=== PATIENT | female | born 1965 | race Caucasian/White ===

== ENCOUNTER 2016-10-10 10:08 | Outpatient (RCR) | payer BC ==
--- OUTSIDE RECORDS SUMMARY | 2016-09-25 14:18 | XMS REPORT | Continuity of Care Document ---
Author Author [facility] Organization [facility] Address Unknown Phone Unavailable Care Team Providers Care Manager General Name Role Phone Leslie Alonso PCP [phone] Source Comments Some departments are not documenting in the electronic medical record. If you do not see the information that you expected, contact Release of Information in the Health Information Management department at [phone] for further assistance in locating additional records.[facility] Active Allergies and Adverse Reactions No Known Allergies Current Medications Prescription Sig. Disp. Refills Start End Date Status Date ondansetron (ZOFRAN) 8 mg Take 1 Tab by mouth every 40 Tab 4 05/02/20 Active tablet 8 hours as needed for 16 Nausea. Indications: CANCER CHEMOTHERAPY-INDUCED NAUSEA AND VOMITING prochlorperazine Take 1 Tab by mouth every 40 Tab 4 05/02/20 Active (COMPAZINE) 10 mg tablet 6 hours as needed. 16 Indications: CANCER CHEMOTHERAPY-INDUCED NAUSEA AND VOMITING, NAUSEA AND VOMITING dexamethasone (DECADRON) Beginning 24 hours after 40 Tab 3 05/05/20 Active 4 mg tablet each Cisplatin infusion, 16 take 2 tablets by mouth daily for 3 days. lidocaine-prilocaine Apply thin layer to skin 30 g 0 05/09/20 Active (EMLA) 2.5-2.5 % topical over port 30 minutes 16 cream prior to access lisinopril (PRINIVIL; Take 40 mg by mouth at Active ZESTRIL) 20 mg tablet bedtime daily. diphenhydrAMINE (BENADRYL Take 50 mg by mouth at Active ALLERGY) 25 mg tablet bedtime as needed. polyethylene glycol 3350 Take 17 g by mouth daily. Active (GLYCOLAX; MIRALAX) 17 gram/dose powder metoclopramide HCl Take 1 Tab by mouth every 60 Tab 3 12/02/20 Active (REGLAN) 10 mg tablet 8 hours as needed. 16 Indications: PREVENTION OF CHEMOTHERAPY-INDUCED NAUSEA AND VOMITING levoFLOXacin (LEVAQUIN) Take 1 Tab by mouth 10 Tab 0 09/19/20 Active 500 mg tablet daily. 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 In January/2016 she first started noticing various symptoms. The first of which was a rash on her stomach followed by persistent nausea and vomiting. She attributed her symptoms to being on a cruise in [place].She then developed dark urine and jaundice of the skin and sclera late March and then presented for evaluation. She was worked up at [facility] where ct sans showed biliary distension. She had an ERCP, sphincterotomy, stent placement and bile duct washing. Pathology consistent with adenocarcinoma. New diagnosis of cholangiocarcinoma - per path report adenocarcinoma on bronchial washings from ERCP 03/[address] scan c/a/p in March 2016 that shows no metastatic disease. 04/24/16 MRI maging reviewed and it showed a mass in the hilum with an infiltrative lesion in segment 5 of her liver. Patient's case of discussed in the multidisciplinary tumor board, consensus was she is not a surgical or transplant candidate at this time and the recommendation was to consider starting palliative chemotherapy with cisplatin and gemcitabine CURRENT THERAPY: IV Gemzar 1000mg/m2 +cisplatin 25mg/m2 d1and 8 Q21 day cycle started on 05/09/16 Palliative intent of treatment. 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 She was started on Gemcitabine+cisplatin on 05/09/16. She tolerated treatment well with no dose limiting toxicities. Her labs are stable per trends. Plan: -proceed with C1D8 of gemcitabine+cisplatin -return to clinic in 2 weeks for follow up with Dr. Fletcher and consideration of C2D1 -she was instructed to call clinic prior to her next appointment if she develops new symptoms or concerns. -I will contact GI regarding stent exchange Most Recent Encounters Date Type Specialty Providers Description 09/25/2016 Cancer Oncology Sue Fletcher MD Conference 09/19/2016 Nurse Only Oncology Sue Fletcher MD 09/19/2016 Office Visit Oncology Sue Fletcher MD Hilar cholangiocarcinoma (HCC) (Primary Dx) 09/19/2016 [facility] Radiology Sue Fletcher MD Arrived Encounter 09/19/2016 [facility] Radiology Sue Fletcher MD Arrived Encounter 09/17/2016 Screening Form 09/10/2016 [facility] Oncology Sue Fletcher MD Encounter 09/10/2016 [facility] Oncology Sue Fletcher MD Encounter 09/08/2016 Orders Only Oncology Sue Fletcher MD 09/08/2016 Orders Only Oncology Sue Fletcher MD 08/29/2016 [facility] Oncology Sue Fletcher MD Encounter 08/29/2016 [facility] Oncology Sue Fletcher MD Encounter 08/22/2016 [facility] Oncology Sue Fletcher MD Encounter 08/22/2016 Office Visit Oncology Sue Fletcher MD Hilar cholangiocarcinoma (HCC) (Primary Dx); Other fatigue 08/22/2016 Nurse Only Oncology Sue Fletcher MD Hilar cholangiocarcinoma (HCC) (Primary Dx) 08/08/2016 [facility] Oncology Sue Fletcher MD Encounter 08/08/2016 [facility] Oncology Sue Fletcher MD Encounter 08/01/2016 [facility] Oncology Sue Fletcher MD Encounter 08/01/2016 Office Visit Oncology Yin Dimas, [employer]-SPEECH THERAPY DIRECTOR Cholangiocarcinoma (HCC) (Primary Dx); Hilar cholangiocarcinoma (HCC); Other fatigue; Nausea 08/01/2016 Nurse Only Oncology Sue Fletcher MD Hilar cholangiocarcinoma (HCC) (Primary Dx) 07/31/2016 Orders Only Oncology Yin Dimas APRN-SPEECH THERAPY DIRECTOR 07/31/2016 Orders Only Oncology Sue Fletcher MD 07/21/2016 Telephone Oncology Sue Fletcher MD Results - thyroid US 07/18/2016 [facility] Oncology Sue Fletcher MD Encounter 07/18/2016 Hospital Oncology Sue Fletcher MD Encounter 07/17/2016 [facility] Radiology Sue Fletcher MD Encounter 07/17/2016 Hospital Radiology Sue Fletcher MD Encounter 07/17/2016 Telephone Oncology Sue Fletcher MD Results 07/17/2016 Screening Form 07/14/2016 Telephone Oncology Sue Fletcher MD Appointment 07/14/2016 Telephone Oncology Sue Fletcher MD Appointment 07/11/2016 Hospital Oncology Sue Fletcher MD Encounter 07/11/2016 Office Visit Oncology Sue Fletcher MD Hilar cholangiocarcinoma (HCC) (Primary Dx) 07/11/2016 Hospital Radiology Sue Fletcher MD Encounter 07/11/2016 Hospital Radiology Sue Fletcher MD Encounter 07/11/2016 Ancillary Oncology Reva Devine MD Cholangiocarcinoma (HCC) Orders (Primary Dx) 07/09/2016 Screening Form 06/27/2016 [facility] Oncology Sue Fletcher MD Encounter 06/27/2016 Hospital Oncology Sue Fletcher MD Encounter 06/26/2016 Orders Only Oncology Sue Fletcher MD Immunizations Name Dates Previously Given Next Due Flu Vaccine 07/11/2016 Quadrivalent=>3 Yo (Preservative Free) Tdap Vaccine 09/10/2016 Social History Tobacco Use Types Packs/Day Years Used Date Never Smoker Smokeless Tobacco: Never Used Alcohol Use Drinks/Week oz/Week Comments No Last Filed Vital Signs Vital Sign Reading Time Taken Blood Pressure 120/78 09/19/2016 9:10 AM TOY MECHANIC Pulse 72 09/19/2016 9:10 AM TOY MECHANIC Temperature 36.5 C (97.7 F) 09/19/2016 9:10 AM TOY MECHANIC Respiratory Rate 18 07/11/2016 9:45 AM CDT Height 1.753 m (5' 9") 09/19/2016 9:10 AM TOY MECHANIC Weight 139.617 kg (307 lb 12.8 09/19/2016 9:10 AM TOY MECHANIC oz) Body Mass Index 45.43 09/19/2016 9:10 AM TOY MECHANIC Oxygen Saturation 95% 09/19/2016 9:10 AM TOY MECHANIC Plan of Care Date Type Specialty Providers Description 09/26/2016 Appointment Oncology Sue Fletcher MD [address] [facility] [address] [place] [address] [phone] (Fax) 09/26/2016 Appointment Oncology Sue Fletcher MD [address] [facility] [address] [place] [address] [phone] (Fax) 10/10/2016 Appointment Oncology 10/10/2016 Appointment Oncology Yin Dimas APRN-SPEECH THERAPY DIRECTOR [address] [facility] [address] [place] [address] [phone] (Fax) 10/10/2016 Appointment Oncology 10/17/2016 Appointment Oncology 10/17/2016 Appointment Oncology 10/31/2016 Appointment Oncology 10/31/2016 Appointment Oncology 11/07/2016 Appointment Oncology 11/07/2016 Appointment Oncology 11/21/2016 Appointment Radiology Sue Fletcher MD [address] [facility] [address] [place] [address] [phone] (Fax) 11/21/2016 Appointment Radiology Sue Fletcher MD [address] [facility] [address] [place] [address] [phone] (Fax) 11/21/2016 Appointment Radiology 11/21/2016 Appointment Oncology Sue Fletcher MD [address] [facility] [address] [place] [address] [phone] (Fax) 11/21/2016 Appointment Oncology 01/26/2017 Appointment Radiology Sue Fletcher MD [address] [facility] [address] [place] [address] [phone] (Fax) Health Maintenance Due Date Last Done Comments Physical (Comprehensive) 1973 Exam Cervical Cancer Screening 1987 Breast Cancer Screening 2006 Colorectal Cancer 2016 Screening Influenza Vaccine 06/19/2017 07/11/2016 Tetanus Vaccine 09/10/2026 09/10/2016 Pertussis Vaccine Completed 09/10/2016 Results from Last [address] ABD/PELV W CONTRAST (09/19/2016 8:20 AM)Only the most recent of 2 results within the time period is included. Addenda Addendum by Freda Boyle MD on 09/19/2016 9:54 AM Finalized by Freda Boyle M.D. on 09/19/2016 8:45 AM. Dictated by Freda Boyle M.D. on 09/19/2016 8:23 AM.Addendum: The region of subtle hypoattenuation at the ciro hepatis, which may represent a small amount of residual tumor, measures 1.5 x 1.1 cm, previously 3.4 cm (series 2, image 82). However, MRI with contrast may be performed for future follow up to better assess residual tumor. This finding was discussed with Dr. Rg by Dr. Boyle at 0945 on 09/19/16. Finalized by Freda Boyle M.D. on 09/19/2016 9:51 AM. Dictated by Freda Boyle M.D. on 09/19/2016 9:49 AM. Impressions CHEST: 1.Patchy and nodular groundglass opacities in the right upper lobe, which may represent bronchopneumonia. Drug reaction not excluded. 2.No thoracic adenopathy. 3.Unchanged appearance of mixed areas of sclerosis and lucency involving the T8-10 vertebral bodies, previously characterized as atypical hemangiomas. ABDOMEN AND PELVIS: 1.No definite measurable tumor. There is minimal upstream intrahepatic biliary ductal dilatation, markedly improved since the prior exam. 2.No abdominopelvic adenopathy. Narrative CT CHEST, ABDOMEN AND PELVIS Clinical Indication:Female, 51 years old. Hilar cholangiocarcinoma status post chemotherapy. Technique: Multiple contiguous axial images were obtained through the chest, abdomen and pelvis following the administration of IV contrast material. Portal venous and delayed imaging was obtained. Post processing coronal and sagittal reconstruction images were made from the axial images. IV contrast: Isovue-370 Bowel contrast:Barium Comparison: CT 07/11/2016. CHEST FINDINGS: Lower Neck: There is a stable 1.9 cm thyroid isthmic nodule (series 2, image 6). Axilla, Mediastinum and Crystal: There is no axillary, mediastinal, or hilar lymphadenopathy. Heart and Great Vessels: Cardiac size is within normal limits. There is mild coronary artery atherosclerosis. There is no pericardial effusion. The great vessels are normal in caliber. There is a two-vessel aortic arch. Airway, Lungs and Pleura: The central airways are patent. There are patchy nodular groundglass opacities in the right upper lobe, new since the prior exam. There is no pleural effusion. Chest Wall and Osseous Structures: A right chest wall port terminates at the cavoatrial junction. There is a sclerotic focus in the right humeral head, likely bone island. There is mixed areas of sclerosis and lucency involving the T8, T9, T10 vertebral bodies, unchanged appearance of the prior exam, previously characterized as atypical hemangiomas. ABDOMEN AND PELVIS FINDINGS: Liver and Biliary system: The liver is enlarged, measuring 20.5 cm. The patient' s known tumor near the ciro hepatis is not well-visualized on this exam. There is subtle hypoattenuation near the ciro hepatis; however, no measurable tumor is identified (series 2, image 82). There is minimal biliary ductal dilatation involving the right and segment 4 intrahepatic hepatic ducts, improved since the prior exam. The gallbladder is present. The portal and hepatic veins are patent. Spleen: The spleen is mildly enlarged, measuring 14.4 cm. Adrenal Glands and Kidneys: The adrenal glands are unremarkable. There is symmetric enhancement the kidneys without hydronephrosis. There is a low- density lesion in the right upper pole, too small to characterize. Pancreas and Retroperitoneum: The pancreas is unremarkable. There is no retroperitoneal adenopathy. Aorta and Major Vessels: There is minimal calcific atherosclerosis of the abdominal aorta and iliac arteries. The aorta is normal in caliber. Bowel, Mesentery and Peritoneal space: There is no bowel obstruction. The appendix is unremarkable. There is no mesenteric adenopathy or ascites. Pelvis: The bladder is mildly distended, grossly unremarkable. The uterus is present. No adnexal masses are identified. There is no pelvic lymphadenopathy. Abdominal wall and Osseous Structures: There is sclerosis along the right sacroiliac joint. No aggressive osseous lesions are identified. Procedure Note Interface, Radiant Results - ThuSep 19, 2016 9:[address] CHEST, ABDOMEN AND PELVIS Clinical Indication: Female, 51 years old. Hilar cholangiocarcinoma status post chemotherapy. Technique: Multiple contiguous axial images were obtained through the chest, abdomen and pelvis following the administration of IV contrast material. Portal venous and delayed imaging was obtained. Post processing coronal and sagittal reconstruction images were made from the axial images. IV contrast: Isovue-370 Bowel contrast: Barium Comparison: CT 07/11/2016. CHEST FINDINGS: Lower Neck: There is a stable 1.9 cm thyroid isthmic nodule (series 2, image 6). Axilla, Mediastinum and Crystal: There is no axillary, mediastinal, or hilar lymphadenopathy. Heart and Great Vessels: Cardiac size is within normal limits. There is mild coronary artery atherosclerosis. There is no pericardial effusion. The great vessels are normal in caliber. There is a two-vessel aortic arch. Airway, Lungs and Pleura: The central airways are patent. There are patchy nodular groundglass opacities in the right upper lobe, new since the prior exam. There is no pleural effusion. Chest Wall and Osseous Structures: A right chest wall port terminates at the cavoatrial junction. There is a sclerotic focus in the right humeral head, likely bone island. There is mixed areas of sclerosis and lucency involving the T8, T9, T10 vertebral bodies, unchanged appearance of the prior exam, previously characterized as atypical hemangiomas. ABDOMEN AND PELVIS FINDINGS: Liver and Biliary system: The liver is enlarged, measuring 20.5 cm. The patient' s known tumor near the ciro hepatis is not well-visualized on this exam. There is subtle hypoattenuation near the ciro hepatis; however, no measurable tumor is identified (series 2, image 82). There is minimal biliary ductal dilatation involving the right and segment 4 intrahepatic hepatic ducts, improved since the prior exam. The gallbladder is present. The portal and hepatic veins are patent. Spleen: The spleen is mildly enlarged, measuring 14.4 cm. Adrenal Glands and Kidneys: The adrenal glands are unremarkable. There is symmetric enhancement the kidneys without hydronephrosis. There is a low- density lesion in the right upper pole, too small to characterize. Pancreas and Retroperitoneum: The pancreas is unremarkable. There is no retroperitoneal adenopathy. Aorta and Major Vessels: There is minimal calcific atherosclerosis of the abdominal aorta and iliac arteries. The aorta is normal in caliber. Bowel, Mesentery and Peritoneal space: There is no bowel obstruction. The appendix is unremarkable. There is no mesenteric adenopathy or ascites. Pelvis: The bladder is mildly distended, grossly unremarkable. The uterus is present. No adnexal masses are identified. There is no pelvic lymphadenopathy. Abdominal wall and Osseous Structures: There is sclerosis along the right sacroiliac joint. No aggressive osseous lesions are identified. IMPRESSION CHEST: 1. Patchy and nodular groundglass opacities in the right upper lobe, which may represent bronchopneumonia. Drug reaction not excluded. 2. No thoracic adenopathy. 3. Unchanged appearance of mixed areas of sclerosis and lucency involving the T8-10 vertebral bodies, previously characterized as atypical hemangiomas. ABDOMEN AND PELVIS: 1. No definite measurable tumor. There is minimal upstream intrahepatic biliary ductal dilatation, markedly improved since the prior exam. 2. No abdominopelvic adenopathy. CT CHEST W CONTRAST (09/19/2016 8:20 AM)Only the most recent of 2 results within the time period is included. Addenda Addendum by Freda Boyle MD on 09/19/2016 9:54 AM Finalized by Freda Boyle M.D. on 09/19/2016 8:45 AM. Dictated by Freda Boyle M.D. on 09/19/2016 8:23 AM.Addendum: The region of subtle hypoattenuation at the ciro hepatis, which may represent a small amount of residual tumor, measures 1.5 x 1.1 cm, previously 3.4 cm (series 2, image 82). However, MRI with contrast may be performed for future follow up to better assess residual tumor. This finding was discussed with Dr. Rg by Dr. Boyle at 0945 on 09/19/16. Finalized by Freda Boyle M.D. on 09/19/2016 9:51 AM. Dictated by Freda Boyle M.D. on 09/19/2016 9:49 AM. Impressions CHEST: 1.Patchy and nodular groundglass opacities in the right upper lobe, which may represent bronchopneumonia. Drug reaction not excluded. 2.No thoracic adenopathy. 3.Unchanged appearance of mixed areas of sclerosis and lucency involving the T8-10 vertebral bodies, previously characterized as atypical hemangiomas. ABDOMEN AND PELVIS: 1.No definite measurable tumor. There is minimal upstream intrahepatic biliary ductal dilatation, markedly improved since the prior exam. 2.No abdominopelvic adenopathy. Narrative CT CHEST, ABDOMEN AND PELVIS Clinical Indication:Female, 51 years old. Hilar cholangiocarcinoma status post chemotherapy. Technique: Multiple contiguous axial images were obtained through the chest, abdomen and pelvis following the administration of IV contrast material. Portal venous and delayed imaging was obtained. Post processing coronal and sagittal reconstruction images were made from the axial images. IV contrast: Isovue-370 Bowel contrast:Barium Comparison: CT 07/11/2016. CHEST FINDINGS: Lower Neck: There is a stable 1.9 cm thyroid isthmic nodule (series 2, image 6). Axilla, Mediastinum and Crystal: There is no axillary, mediastinal, or hilar lymphadenopathy. Heart and Great Vessels: Cardiac size is within normal limits. There is mild coronary artery atherosclerosis. There is no pericardial effusion. The great vessels are normal in caliber. There is a two-vessel aortic arch. Airway, Lungs and Pleura: The central airways are patent. There are patchy nodular groundglass opacities in the right upper lobe, new since the prior exam. There is no pleural effusion. Chest Wall and Osseous Structures: A right chest wall port terminates at the cavoatrial junction. There is a sclerotic focus in the right humeral head, likely bone island. There is mixed areas of sclerosis and lucency involving the T8, T9, T10 vertebral bodies, unchanged appearance of the prior exam, previously characterized as atypical hemangiomas. ABDOMEN AND PELVIS FINDINGS: Liver and Biliary system: The liver is enlarged, measuring 20.5 cm. The patient' s known tumor near the ciro hepatis is not well-visualized on this exam. There is subtle hypoattenuation near the ciro hepatis; however, no measurable tumor is identified (series 2, image 82). There is minimal biliary ductal dilatation involving the right and segment 4 intrahepatic hepatic ducts, improved since the prior exam. The gallbladder is present. The portal and hepatic veins are patent. Spleen: The spleen is mildly enlarged, measuring 14.4 cm. Adrenal Glands and Kidneys: The adrenal glands are unremarkable. There is symmetric enhancement the kidneys without hydronephrosis. There is a low- density lesion in the right upper pole, too small to characterize. Pancreas and Retroperitoneum: The pancreas is unremarkable. There is no retroperitoneal adenopathy. Aorta and Major Vessels: There is minimal calcific atherosclerosis of the abdominal aorta and iliac arteries. The aorta is normal in caliber. Bowel, Mesentery and Peritoneal space: There is no bowel obstruction. The appendix is unremarkable. There is no mesenteric adenopathy or ascites. Pelvis: The bladder is mildly distended, grossly unremarkable. The uterus is present. No adnexal masses are identified. There is no pelvic lymphadenopathy. Abdominal wall and Osseous Structures: There is sclerosis along the right sacroiliac joint. No aggressive osseous lesions are identified. Procedure Note Interface, Radiant Results - ThuSep 19, 2016 9:[address] CHEST, ABDOMEN AND PELVIS Clinical Indication: Female, 51 years old. Hilar cholangiocarcinoma status post chemotherapy. Technique: Multiple contiguous axial images were obtained through the chest, abdomen and pelvis following the administration of IV contrast material. Portal venous and delayed imaging was obtained. Post processing coronal and sagittal reconstruction images were made from the axial images. IV contrast: Isovue-370 Bowel contrast: Barium Comparison: CT 07/11/2016. CHEST FINDINGS: Lower Neck: There is a stable 1.9 cm thyroid isthmic nodule (series 2, image 6). Axilla, Mediastinum and Crystal: There is no axillary, mediastinal, or hilar lymphadenopathy. Heart and Great Vessels: Cardiac size is within normal limits. There is mild coronary artery atherosclerosis. There is no pericardial effusion. The great vessels are normal in caliber. There is a two-vessel aortic arch. Airway, Lungs and Pleura: The central airways are patent. There are patchy nodular groundglass opacities in the right upper lobe, new since the prior exam. There is no pleural effusion. Chest Wall and Osseous Structures: A right chest wall port terminates at the cavoatrial junction. There is a sclerotic focus in the right humeral head, likely bone island. There is mixed areas of sclerosis and lucency involving the T8, T9, T10 vertebral bodies, unchanged appearance of the prior exam, previously characterized as atypical hemangiomas. ABDOMEN AND PELVIS FINDINGS: Liver and Biliary system: The liver is enlarged, measuring 20.5 cm. The patient' s known tumor near the ciro hepatis is not well-visualized on this exam. There is subtle hypoattenuation near the ciro hepatis; however, no measurable tumor is identified (series 2, image 82). There is minimal biliary ductal dilatation involving the right and segment 4 intrahepatic hepatic ducts, improved since the prior exam. The gallbladder is present. The portal and hepatic veins are patent. Spleen: The spleen is mildly enlarged, measuring 14.4 cm. Adrenal Glands and Kidneys: The adrenal glands are unremarkable. There is symmetric enhancement the kidneys without hydronephrosis. There is a low- density lesion in the right upper pole, too small to characterize. Pancreas and Retroperitoneum: The pancreas is unremarkable. There is no retroperitoneal adenopathy. Aorta and Major Vessels: There is minimal calcific atherosclerosis of the abdominal aorta and iliac arteries. The aorta is normal in caliber. Bowel, Mesentery and Peritoneal space: There is no bowel obstruction. The appendix is unremarkable. There is no mesenteric adenopathy or ascites. Pelvis: The bladder is mildly distended, grossly unremarkable. The uterus is present. No adnexal masses are identified. There is no pelvic lymphadenopathy. Abdominal wall and Osseous Structures: There is sclerosis along the right sacroiliac joint. No aggressive osseous lesions are identified. IMPRESSION CHEST: 1. Patchy and nodular groundglass opacities in the right upper lobe, which may represent bronchopneumonia. Drug reaction not excluded. 2. No thoracic adenopathy. 3. Unchanged appearance of mixed areas of sclerosis and lucency involving the T8-10 vertebral bodies, previously characterized as atypical hemangiomas. ABDOMEN AND PELVIS: 1. No definite measurable tumor. There is minimal upstream intrahepatic biliary ductal dilatation, markedly improved since the prior exam. 2. No abdominopelvic adenopathy. MAGNESIUM (09/19/2016 7:15 AM)Only the most recent of 9 results within the time period is included. Component Value Range Magnesium 1.7 1.6-2.6 MG/DL CBC AND DIFF (09/19/2016 7:15 AM)Only the most recent of 9 results within the time period is included. Component Value Range White Blood Cells 6.8 4.5-11.0 K/UL RBC 2.99 (L) 4.0-5.0 M/UL Hemoglobin 9.3 (L) 12.0-15.0 GM/DL Hematocrit 28.2 (L) 36-45 % MCV 94.3 80-100 FL MCH 31.0 26-34 PG MCHC 32.8 32.0-36.0 G/DL RDW 18.8 (H) 11-15 % Platelet Count 165 150-400 K/UL MPV 7.8 7-11 FL Segmented Neutrophils 54 41-77 % Bands 3 0-10 % Lymphocytes 32 24-44 % Monocytes 8 4-12 % Eosinophil 1 0-5 % Myelocyte 2 % ANISO PRESENT POIK PRESENT POLY PRESENT Ovalocyte PRESENT Teardrop PRESENT Platelet Estimate NORMAL Absolute Neutrophil Count 3.87 1.8-7.0 K/UL Manual COMPREHENSIVE METABOLIC PANEL (09/19/2016 7:15 AM)Only the most recent of 9 results within the time period is included. Component Value Range Sodium 134 (L) 137-147 MMOL/L Potassium 4.6 3.5-5.1 MMOL/L Chloride 103 98-110 MMOL/L Glucose 93 70-100 MG/DL Blood Urea Nitrogen 12 7-25 MG/DL Creatinine 1.05 (H) 0.4-1.00 MG/DL Calcium 9.0 8.5-10.6 MG/DL Total Protein 6.3 6.0-8.0 G/DL Total Bilirubin 0.4 0.3-1.2 MG/DL Albumin 3.8 3.5-5.0 G/DL Alk Phosphatase 60 25-110 U/L AST (SGOT) 20 7-40 U/L CO2 26 21-30 MMOL/L ALT (SGPT) 17 7-56 U/L Anion Gap 5 3-12 eGFR Non 55 (L)Comment: >60 mL/min The eGFR is not validated for use in drug dosing adjustments. Continue to use estimated creatinine clearance per dosing reference text. Please contact the Clinical Pharmacist for questions. eGFR >60Comment: >60 mL/min The eGFR is not validated for use in drug dosing adjustments. Continue to use estimated creatinine clearance per dosing reference text. Please contact the Clinical Pharmacist for questions. CA19.9 (09/10/2016 9:15 AM)Only the most recent of 4 results within the time period is included. Component Value Range CA 19-9 38 (H) <35 U/ml Specimen Blood US THYROID (07/17/2016 1:34 PM) Impressions Large isthmic and small right thyroid morphologically indeterminate nodules, though thought to be most likely follicular nodules. If clinically indicated percutaneous biopsy or follow up thyroid ultrasound in 6-9 months can be obtained for further evaluation. Approved by Stephen Benavidez M.D. on 07/17/2016 5:07 PM By my electronic signature, I attest that I have personally reviewed the images for this examination and formulated the interpretations and opinions expressed in this report Finalized by Indra Khoury M.D. on 07/17/2016 7:41 PM. Dictated by Stephen Benavidez M.D. on 07/17/2016 2:31 PM. Narrative THYROID ULTRASOUND Clinical Indication: Hypodense thyroid isthmus nodule measuring up to [address] Comparison: CT chest July 11, 2016 Technique: Multiple real time boykin scale sonographic images were obtained of the thyroid with color duplex imaging. Findings: Indra Khoury M.D. has personally reviewed these images and formulated the interpretations and opinions expressed in this report. The right lobe of the thyroid measures 6.0 x 1.4 x 1.8 cm. Small partially cystic and partially solid nodule in the mid right thyroid measures 0.9 x 0.5 x 0.4 cm. Minimal peripheral blood flow is identified. The left lobe of the thyroid measures 5.3 x 1.3 x 1.7 cm. Large well-defined primarily iso to hypoechoic mass, primarily in the left side of the isthmus, measuring 3.0 x 1.6 x 2.3 cm with minimal peripheral blood flow. There are bilateral indeterminate and reactive appearing cervical lymph nodes identified. Procedure Note Interface, Radiant Results - Ritu Jul 17, 2016 7:44 PM CDT THYROID ULTRASOUND Clinical Indication: Hypodense thyroid isthmus nodule measuring up to [address] Comparison: CT chest July 11, 2016 Technique: Multiple real time boykin scale sonographic images were obtained of the thyroid with color duplex imaging. Findings: Indra Khoury M.D. has personally reviewed these images and formulated the interpretations and opinions expressed in this report. The right lobe of the thyroid measures 6.0 x 1.4 x 1.8 cm. Small partially cystic and partially solid nodule in the mid right thyroid measures 0.9 x 0.5 x 0.4 cm. Minimal peripheral blood flow is identified. The left lobe of the thyroid measures 5.3 x 1.3 x 1.7 cm. Large well-defined primarily iso to hypoechoic mass, primarily in the left side of the isthmus, measuring 3.0 x 1.6 x 2.3 cm with minimal peripheral blood flow. There are bilateral indeterminate and reactive appearing cervical lymph nodes identified. IMPRESSION Large isthmic and small right thyroid morphologically indeterminate nodules, though thought to be most likely follicular nodules. If clinically indicated percutaneous biopsy or follow up thyroid ultrasound in 6-9 months can be obtained for further evaluation. Approved by Stephen Benavidez M.D. on 07/17/2016 5:07 PM By my electronic signature, I attest that I have personally reviewed the images for this examination and formulated the interpretations and opinions expressed in this report Finalized by Indra Khoury M.D. on 07/17/2016 7:41 PM. Dictated by Stephen Benavidez M.D. on 07/17/2016 2:31 PM. MRI T-SPINE WO/W CONTRAST (07/17/2016 12:10 PM) Impressions 1. Appearance of the T8-T10 osseous lesions. 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 2. From T7-T10, there are multiple small focal disc protrusions without high- grade spinal canal narrowing. Approved by Jersey Muse M.D. on 07/17/2016 2:52 PM By my electronic signature, I attest that I have personally reviewed the images for this examination and formulated the interpretations and opinions expressed in this report Finalized by ALEJANDRO PALOMO M.D. on 07/17/2016 5:45 PM. Dictated by Jersey Muse M.D. on 07/17/2016 2:09 PM. Narrative EXAM: MRI THORACIC SPINE HISTORY: 51-year-old female, Patchy sclerosis with lobulated sclerotic marginated lucent lesions in T9-T11 vertebral bodies, hilar cholangiocarcinoma Technique: Multiple sagittal and axial MR sequences were obtained of the thoracic spine with and without gadolinium contrast. Comparison: CT chest/abdomen/pelvis 07/11/2016 FINDINGS: Involving the region of interest in the T8-T10 vertebral bodies, there aren't rounded foci of T2 hyperintensity with a honeycomb appearance on axial imaging. 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 There are mild degenerative changes of the thoracic spine with small focal protrusions from T7-T10 without high-grade spinal canal narrowing. There is normal thoracic alignment. The vertebral body heights are maintained. The thoracic cord is normal in size and signal. The paraspinous soft tissues are unremarkable. Procedure Note Interface, Radiant Results - Ritu Jul 17, 2016 5:49 PM CDT EXAM: MRI THORACIC SPINE HISTORY: 51-year-old female, Patchy sclerosis with lobulated sclerotic marginated lucent lesions in T9-T11 vertebral bodies, hilar cholangiocarcinoma Technique: Multiple sagittal and axial MR sequences were obtained of the thoracic spine with and without gadolinium contrast. Comparison: CT chest/abdomen/pelvis 07/11/2016 FINDINGS: Involving the region of interest in the T8-T10 vertebral bodies, there aren't rounded foci of T2 hyperintensity with a honeycomb appearance on axial imaging. 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 There are mild degenerative changes of the thoracic spine with small focal protrusions from T7-T10 without high-grade spinal canal narrowing. There is normal thoracic alignment. The vertebral body heights are maintained. The thoracic cord is normal in size and signal. The paraspinous soft tissues are unremarkable. IMPRESSION 1. Appearance of the T8-T10 osseous lesions. 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 2. From T7-T10, there are multiple small focal disc protrusions without high- grade spinal canal narrowing. Approved by Jersey Muse M.D. on 07/17/2016 2:52 PM By my electronic signature, I attest that I have personally reviewed the images for this examination and formulated the interpretations and opinions expressed in this report Finalized by ALEJANDRO PALOMO M.D. on 07/17/2016 5:45 PM. Dictated by Jersey Muse M.D. on 07/17/2016 2:09 PM.
[~2016-10-10] VITALS: Ht 174.6 cm; Wt 140.2 kg
[~2016-10-10 10:08] MED LIST: FAMOTIDINE 20MG/2ML IV (CANCER CTR) IV SCH; FOSAPREPITANT 150 MG/NS 150 MG IVPB (CANCER CTR) IV PRN; NS IV 1000 ML (CANCER CTR) IV SCH; PALONOSETRON 0.25 MG, DEXAMETHASONE 10 MG/NS 50 ML IVPB IV PRN
[2016-10-10 10:35] LABS: BASOPHILS % (AUTO) 0 % (0-10); EOSINOPHILS # (AUTO) 0.1 10^3/uL (0.0-0.3); EOSINOPHILS % (AUTO) 2 % (0-10); LYMPHOCYTES # (AUTO) 2.3 X 10^3 (1.0-4.0); LYMPHOCYTES % (AUTO) 32 % (12-44); MEAN CORPUSCULAR HEMOGLOBIN 31 PG (25-34); MEAN CORPUSCULAR HGB CONC 33 G/DL (32-36); MEAN CORPUSCULAR VOLUME 96 FL (80-99); MEAN PLATELET VOLUME 10.9 FL (7.4-10.4); MONOCYTES # (AUTO) 0.8 X 10^3 (0.0-1.0); MONOCYTES % (AUTO) 11 % (0-12); NEUTROPHILS # (AUTO) 3.8 X 10^3 (1.8-7.8); NEUTROPHILS % (AUTO) 54 % (42-75); PLATELET COUNT 145 10^3/uL (130-400); RED BLOOD COUNT 3.24 10^6/uL (4.35-5.85); RED CELL DISTRIBUTION WIDTH 15.9 % (10.0-14.5); WHITE BLOOD COUNT 7.1 10^3/uL (4.3-11.0)
[2016-10-10 11:01] LABS: ALANINE AMINOTRANSFERASE 21 U/L (0-55); ANION GAP 7 MMOL/L (5-14); ASPARTATE AMINO TRANSFERASE 23 U/L (5-34); BILIRUBIN,TOTAL 0.4 MG/DL (0.1-1.0); BLOOD UREA NITROGEN 12 MG/DL (7-18); BUN/CREATININE RATIO 14; CALCIUM 9.3 MG/DL (8.5-10.1); CARBON DIOXIDE 25 MMOL/L (21-32); CHLORIDE 103 MMOL/L (98-107); CREATININE SERUM 0.86 MG/DL (0.60-1.30); GFR ESTIMATED > 60; GLUCOSE 90 MG/DL (70-105); POTASSIUM 4.7 MMOL/L (3.6-5.0); SODIUM 135 MMOL/L (135-145); TOTAL PROTEIN 6.6 G/DL (6.4-8.2)
[2016-10-10] MEDS ORDERED: [UNRECOGNIZED DRUG - OTHER] IV SCH (11:15)
[2016-10-10] MEDS ORDERED: GEMCITABINE HCL IV SCH (11:15)
[2016-10-10] MEDS ORDERED: MANNITOL IV SCH ×4 (11:15)
[2016-10-10] MEDS ORDERED: [UNRECOGNIZED DRUG - OTHER] IV SCH ×4 (11:15)
[2016-10-10] MEDS ORDERED: CISPLATIN IV SCH ×4 (11:15)
[2016-10-10] MEDS ORDERED: NS IV 500 ML (CANCER CENTER) 500 ML ONE (13:37)
== END 2016-12-24 | disposition home or self-care (01) ==
LOC: ONC 10:08
PROVIDERS: ATTEND Internal Medicine Hematology & Oncology
DX: Z51.11 Encounter for antineoplastic chemotherapy (principal); C24.0 Malignant neoplasm of extrahepatic bile duct; I10 Essential (primary) hypertension; E78.00 Pure hypercholesterolemia, unspecified; Z79.899 Other long term (current) drug therapy
CPT/HCPCS: 36591; 80053; 85025; 86301; 96367; 96375; 96413; 96417; 99213; 99214

== ENCOUNTER → 2017-06-29 | Outpatient (CLI) | payer BC ==
--- NOTE | 2017-06-29 12:00 | Diagnostic Imaging Report ---
PROCEDURE: US Gallbladder. TECHNIQUE: Multiple real-time grayscale images were obtained over the right upper quadrant in various projections. INDICATION: Right upper quadrant pain. FINDINGS: The liver is enlarged measuring 23 cm craniocaudally and is associated with increased echogenicity and attenuation of the ultrasound beam which may relate to fatty infiltration. The pancreas is largely obscured. The portal vein demonstrates hepatopetal flow. The CBD is obscured. The gallbladder demonstrates no stones or wall thickening. No pericholecystic fluid. Sonographic sign is reportedly negative. There is no ascites or fluid collection seen. The right kidney is 11.7 cm in length with no hydronephrosis or focal lesion. IMPRESSION: 1. No gallstones or evidence of cholecystitis. 2. Hepatomegaly with increased liver echogenicity suggestive of fatty infiltration. Dictated by: Dictated on workstation # [id number]
== END ==
LOC: RAD 06:52
PROVIDERS: ATTEND Nurse Practitioner Community Health
DX: R16.0 Hepatomegaly, not elsewhere classified (principal); R10.11 Right upper quadrant pain
CPT/HCPCS: 76705

== ENCOUNTER → 2018-08-03 | Outpatient (CLI) | payer BC, OTHER ==
--- NOTE | 2018-08-03 14:39 | Diagnostic Imaging Report ---
INDICATION: Routine screening. COMPARISON: 10/01/2016. TECHNIQUE: 2D and 3D bilateral screening mammography was performed with CAD. FINDINGS: Scattered fibroglandular densities are identified bilaterally. There are benign calcifications scattered throughout both breasts. No mass or malignant appearing microcalcifications are seen. The axillae are unremarkable. IMPRESSION: No mammographic features suspicious for malignancy are identified. ACR BI-RADS Category 2: Benign findings. Result letter will be mailed to the patient. Note: At least 10% of breast cancer is not imaged by mammography. Dictated by: Dictated on workstation # [id number]
== END ==
LOC: RAD 07:24
PROVIDERS: ATTEND Nurse Practitioner Community Health
DX: Z12.31 Encounter for screening mammogram for malignant neoplasm of breast (principal)
CPT/HCPCS: 77067

== ENCOUNTER → 2019-08-10 | Outpatient (CLI) | payer OTHER ==
--- NOTE | 2019-08-10 09:07 | Diagnostic Imaging Report ---
INDICATION: Routine screening. COMPARISON: 08/03/2018 and 10/01/2016. TECHNIQUE: 2D and 3D bilateral screening mammography was performed with CAD. FINDINGS: Scattered fibroglandular densities are identified bilaterally. Benign calcifications are again noted. No mass or malignant appearing microcalcifications are seen. The axillae are unremarkable. IMPRESSION: No mammographic features suspicious for malignancy are identified. ACR BI-RADS Category 2: Benign findings. Result letter will be mailed to the patient. Note: At least 10% of breast cancer is not imaged by mammography. Dictated by: Dictated on workstation # [id number]
== END ==
LOC: RAD 07:35
PROVIDERS: ATTEND Nurse Practitioner Community Health
DX: Z12.31 Encounter for screening mammogram for malignant neoplasm of breast (principal)
CPT/HCPCS: 77067

== ENCOUNTER 2019-12-13 12:41 | Outpatient (CLI) | payer OTHER ==
[~2019-12-13] VITALS: Ht 175.3 cm; Wt 140.9 kg
[2019-12-13] MEDS ORDERED: CHOL200059 PO (12:47)
[2019-12-13] MEDS ORDERED: LEVO25TA5 PO (12:47)
[2019-12-13] MEDS ORDERED: METO-333 PO (12:47)
== END 2019-12-13 12:50 | disposition home or self-care (01) ==
LOC: PREOP 12:41
PROVIDERS: ATTEND Surgery
DX: Z01.818 Encounter for other preprocedural examination (principal)

== ENCOUNTER → 2020-09-12 | Outpatient (CLI) | payer OTHER ==
[~2020-09-12] MED LIST changes: +CHOL200059 PO; -FAMOTIDINE 20MG/2ML IV (CANCER CTR) IV SCH; -FOSAPREPITANT 150 MG/NS 150 MG IVPB (CANCER CTR) IV PRN; +LEVO25TA5 PO; +METO-333 PO; -NS IV 1000 ML (CANCER CTR) IV SCH; -PALONOSETRON 0.25 MG, DEXAMETHASONE 10 MG/NS 50 ML IVPB IV PRN
--- NOTE | 2020-09-12 08:42 | Diagnostic Imaging Report ---
Indication: Screening. The current study was also evaluated with a Computer Aided Detection (CAD) system. 3-D Tomographic imaging was also performed. Comparison made with prior examination from 08/10/19, 08/03/2018 and 10/01/2016. FINDINGS: There are scattered fibroglandular densities bilaterally. There are benign type calcifications in both breasts. There is no dominant mass, spiculated lesion or suspicious calcifications identified. The skin, nipples and axilla are unremarkable. IMPRESSION: Category 2 benign ACR BI-RADS Category 2: Benign findings. Result letter will be mailed to the patient. Note: At least 10% of breast cancer is not imaged by mammography. Dictated by: Dictated on workstation # [id number]
== END ==
LOC: RAD 07:30
PROVIDERS: ATTEND Nurse Practitioner Community Health
DX: Z12.31 Encounter for screening mammogram for malignant neoplasm of breast (principal)
CPT/HCPCS: 77063; 77067

== ENCOUNTER → 2021-04-01 | Outpatient (CLI) | payer OTHER ==
--- NOTE | 2021-04-01 16:40 | Diagnostic Imaging Report ---
INDICATION: Bilateral knee pain AP, oblique, and lateral views of both knees are obtained No fracture or acute bony abnormality is seen. On the right side, there is moderate medial joint space narrowing with osteophyte formation and mild lateral joint space narrowing with osteophyte formation. There is moderate patellofemoral spurring. On the left side, there is severe medial joint space narrowing with osteophyte formation and mild lateral joint space narrowing and osteophyte formation. There was moderate patellofemoral degenerative change. IMPRESSION: Degenerative findings of both knees, left worse than right, findings are most pronounced in the medial compartments. Dictated by: Dictated on workstation # [id number]
== END ==
LOC: RAD 16:04
PROVIDERS: ATTEND Family Medicine
DX: M17.0 Bilateral primary osteoarthritis of knee (principal)